=== PATIENT | male | born 1960 | race Caucasian/White ===

== ENCOUNTER 2023-05-29 18:23 | Emergency (ER) | payer OTHER, MEDICARE, MEDICAID ==
[~2023-05-29] VITALS: Ht 180.3 cm; Wt 115.9 kg
[~2023-05-29 18:23] MED LIST: CEPH-571 PO; CIP500T PO; CLOT15CR4 TP; FLO0.4C PO; HYDR-4383 PO; LISI-230 PO; MILK175C2 PO
[2023-05-29 18:27] VITALS: BP 134/87
[2023-05-29] MEDS ORDERED: ketorolac trometh inj. 60 MG/2 ML VIAL IM ONE (19:15)
[2023-05-29] MEDS ORDERED: CYCL-1 PO (19:30)
== END 2023-05-29 20:29 | disposition home or self-care (01) ==
LOC: ER 18:24
DX: M54.50 Low back pain, unspecified (principal); M54.2 Cervicalgia; G89.29 Other chronic pain; Z90.49 Acquired absence of other specified parts of digestive tract; Z72.89 Other problems related to lifestyle; Z79.2 Long term (current) use of antibiotics; Z79.899 Other long term (current) drug therapy; V49.60XA Unspecified car occupant injured in collision with unspecified motor vehicles in traffic accident, initial encounter; Y93.89 Activity, other specified; Y92.89 Other specified places as the place of occurrence of the external cause; Y99.8 Other external cause status; I10 Essential (primary) hypertension
CPT/HCPCS: 72040; 72070; 72100; 96372; 99284; J1885

== ENCOUNTER 2025-03-02 07:51 | Day surgery (SDC) | payer MEDICARE, MEDICAID ==
[~2025-03-02] VITALS: Ht 180.3 cm; Wt 100.1 kg
[2025-03-02] VITALS (11 sets, daily range): BP systolic 106–129; BP diastolic 60–71; PULSE 61–77; RESP 12–18; TEMP 98; O2SAT 95–97
[~2025-03-02 07:51] MED LIST changes: +CYCL-1 PO; -FLO0.4C PO; +TAMS-55 PO
[2025-03-02] MEDS ORDERED: NITR0.4T51 SL (08:53)
[2025-03-02] MEDS ORDERED: SEMA0.258 INJ (08:53)
[2025-03-02] MEDS ORDERED: ALBU18HF2 INH (08:53)
[2025-03-02] MEDS ORDERED: ROSU5TAB51 PO (08:53)
[2025-03-02] MEDS ORDERED: PANT40TA54 PO (08:53)
[2025-03-02] MEDS ORDERED: LISI5TAB22 PO (08:53)
[2025-03-02] MEDS ORDERED: APIX5TAB3 PO (08:53)
[2025-03-02] MEDS ORDERED: FURO20TA4 PO (08:53)
[2025-03-02] MEDS ORDERED: FINA5TAB11 PO (08:53)
[2025-03-02] MEDS ORDERED: DAPA10TA7 PO (08:53)
[2025-03-02 09:04] LABS: BASOPHILS % (AUTO) 0.8 % (0-1); EOSINOPHILS # (AUTO) 0.2 X10'3 (0-0.9); EOSINOPHILS % (AUTO) 6.6 % (0-6); HEMATOCRIT 40.3 % (42.0-52.0); HEMOGLOBIN 13.8 g/dl (14.0-17.9); LYMPHOCYTES % (AUTO) 27.5 % (21-51); MEAN CORPUSCULAR HEMOGLOBIN 29.4 PG (27.0-31.0); MEAN CORPUSCULAR HGB CONC 34.2 g/dL (33.0-36.5); MEAN CORPUSCULAR VOLUME 85.9 FL (78-98); MEAN PLATELET VOLUME 7.9 FL (7.4-10.4); MONOCYTES # (AUTO) 0.5 X10'3 (0-0.9); MONOCYTES % (AUTO) 13.1 % (2-12); NEUTROPHILS # (AUTO) 1.9 X10'3 (1.8-7.7); PLATELET COUNT 184 X10'3 (140-440); RED CELL DISTRIBUTION WIDTH 14.2 % (11.5-14.5); WHITE BLOOD COUNT 3.7 X10'3 (4.5-11.0)
[2025-03-02 09:10] LABS: ALBUMIN 3.4 G/DL (3.4-5.0); ANION GAP 4 (8-16); BLOOD UREA NITROGEN 16 MG/DL (7-18); BUN/CREATININE RATIO 15.2 (10.0-20.0); CALCIUM 8.4 MG/DL (8.5-10.1); CHLORIDE 104 MMOL/L (99-107); CREATININE 1.05 MG/DL (0.60-1.10); GLUCOSE 85 MG/DL (70-104); MAGNESIUM 1.9 MG/DL (1.5-2.4); POTASSIUM 3.6 MMOL/L (3.5-5.1); SODIUM 140 MMOL/L (135-145); TOTAL CARBON DIOXIDE 31.9 MMOL/L (24-32); eCRCL 74 ML/MIN; eGFR 71 ML/MIN
[2025-03-02 09:12] LABS: INR 1.1 INR; PROTHROMBIN TIME 10.9 SECONDS (9.0-12.0)
[2025-03-02] MEDS ORDERED: verapamil 2.5 mg/ml inj IV ONE ×2 (09:21→11:17)
[2025-03-02] MEDS ORDERED: LIDOcaine 1% (10mg/ml) 2ml vial ONE (09:21)
[2025-03-02] MEDS ORDERED: fentaNYL/PF 50MCG/1 ML 2ML syringe ONE (09:22)
[2025-03-02] MEDS ORDERED: heparin 1,000unit/ml 10ml vial 10 ML ONE (09:22)
[2025-03-02] MEDS ORDERED: midazolam 1 mg/ML 2ml injection ONE ×2 (09:22)
[2025-03-02] MEDS ORDERED: iohexol 350MG/ML 100ml bottle IV ONE (09:22)
[2025-03-02] MEDS ORDERED: iohexol 350 MG/ML 50ML vial IV ONE (09:22)
[2025-03-02] MEDS ORDERED: nitroGLYCERIN 500mcg/5mL D5W 5 ML IV ONE (09:23)
[2025-03-02] MEDS: diphenhydrAMINE 25mg capsule PO PRN (10:06)
[2025-03-02] MEDS: normal saline 1,000 ML IV SCH (10:07)
[2025-03-02] MEDS: sodium bicarbonate 1meq/ml syr 150 ML in dextrose 5%-water 1,000 ML IV ONE (10:07)
[2025-03-02] MEDS ORDERED: HYDROmorphone 1 mg/ml syringe ONE (11:16)
[2025-03-02] MEDS ORDERED: HYDROcodone/acetaminophen 10/325mg tab PO PRN (12:05)
[2025-03-02] MEDS ORDERED: ondansetron/PF 4mg/2ml inj IV PRN (12:05)
[2025-03-02] MEDS ORDERED: proCHLORperazine 10 MG/2 ml inj IV PRN (12:05)
[2025-03-02] MEDS ORDERED: HYDROcodone/acetaminophen 5mg/325mg tablet PO PRN (12:05)
== END 2025-03-02 15:55 | disposition home or self-care (01) ==
LOC: SSTAY O 07:51
PROVIDERS: ATTEND Internal Medicine Cardiovascular Disease
DX: R07.9 Chest pain, unspecified (principal); I25.10 Atherosclerotic heart disease of native coronary artery without angina pectoris; I10 Essential (primary) hypertension; E78.5 Hyperlipidemia, unspecified; E11.9 Type 2 diabetes mellitus without complications; G47.30 Sleep apnea, unspecified; K21.9 Gastro-esophageal reflux disease without esophagitis; B19.20 Unspecified viral hepatitis C without hepatic coma; J44.9 Chronic obstructive pulmonary disease, unspecified; Z86.718 Personal history of other venous thrombosis and embolism
CPT/HCPCS: 36415; 80048; 82948; 83735; 85025; 85610; 93005; 93458; 99152; 99153; A6258; A6402; C1894; J1171; J1644; J2003; J2250; J3010; J3490; J7030; J7070; Q0163; Q9967; Z7610; A6449

== ENCOUNTER 2025-05-18 09:44 | Outpatient (CLI) | payer MEDICARE, MEDICAID ==
[~2025-05-18 09:44] MED LIST changes: +ALBU18HF2 INH; +APIX5TAB3 PO; -CEPH-571 PO; -CIP500T PO; -CLOT15CR4 TP; -CYCL-1 PO; +DAPA10TA7 PO; +FINA5TAB11 PO; +FURO20TA4 PO; -HYDR-4383 PO; -LISI-230 PO; +LISI5TAB22 PO; -MILK175C2 PO; +NITR0.4T51 SL; +PANT40TA54 PO; +ROSU5TAB51 PO; +SEMA0.258 INJ
--- NOTE | 2025-05-18 12:19 | RADIOLOGY REPORT ---
INDICATION: HX HEPATITIS C TECHNIQUE: Multiple real-time sonographic images of the abdomen were obtained. COMPARISON: None FINDINGS: The liver is homogenous in echogenicity. The liver measures 19cm. No intrahepatic biliary ductal dilatation is noted. The gallbladder wall measures 0.3 cm and is unremarkable. No gallstones or sludge is seen. The commo n duct measures 0.2 cm and is unremarkable. No pericholecystic fluid is noted. The right kidney measures 11cm. No hydronephrosis. The left kidney measures 12cm. No hydronephrosis . The spleen measures 13cm, within normal limits. The echogenicity is within normal limits. The pancreas is not well visualized due to obscuration from bowel gas. The visualized portions of the IVC and aorta are grossly unremarkable. IMPRESSION: Nonobstructing 9 mm right renal stone. No hydronephrosis
== END 2025-05-18 23:59 | disposition home or self-care (01) ==
LOC: RAD 09:44
PROVIDERS: ATTEND Physician Assistant
DX: N20.0 Calculus of kidney (principal); Z86.19 Personal history of other infectious and parasitic diseases
CPT/HCPCS: 76700